=== PATIENT | female | born 1970 | race Hispanic/Latino ===

== ENCOUNTER → 2024-06-25 | Outpatient (CLI) | payer BC ==
[~2024-06-25] MED LIST: IOHEXOL 350 MG/ML 100ML INFUS..BTL IV ONE; NITROGLYCERIN 4.1 GM SPRAY TL ONE
== END | disposition home or self-care (01) ==
LOC: RAH 07:41
PROVIDERS: ATTEND Student in an Organized Health Care Education/Training Program
DX: I25.10 Atherosclerotic heart disease of native coronary artery without angina pectoris (principal); K44.9 Diaphragmatic hernia without obstruction or gangrene; R07.9 Chest pain, unspecified
CPT/HCPCS: 75574; Q9967